=== PATIENT | female | born 1995 | race Caucasian/White ===

== ENCOUNTER 2018-05-14 19:06 | Emergency (ER) | payer OTHER ==
[2018-05-14 19:10] VITALS: TEMP 97.7; BMI 22.4
--- NOTE | 2018-05-14 20:15 | PDOC ---
*Physical Exam - Vital Signs Last Vital Signs Temp Pulse Resp BP Pulse Ox 97.7 F 111 H 20 134/80 99 05/14/18 19:08 05/14/18 19:08 05/14/18 19:08 05/14/18 19:08 05/14/18 19:08 Medical Decision Making - Medical Decision Making 05/16/18 08:53 The patient was seen and evaluated in conjunction with YOUSIF Murray under my direct supervision, ancillary studies were reviewed. I agree with the plan as outlined by YOUSIF Murray *DC/Admit/Observation/Transfer Diagnosis at time of Disposition: Rash and nonspecific skin eruption - Discharge Dispostion Disposition: HOME Condition at time of disposition: Stable - Referrals Referrals: Yarely Ortiz MD [Staff Physician] - ON STAFF,NOT [Primary Care Provider] - - Patient Instructions Printed Discharge Instructions: DI for Rash Additional Instructions: Your Discharge Instructions: You must call primary care physician within 24 hours to arrange follow-up. Return to the Emergency Department with any new, persistent or worsening symptoms, for fever, chills, SOB, dizziness or any other concerning changes that may occur. Follow-up with the dermatology, call for an appointment in 1-2 days for further testing and evaluation. The rash gets itchy take Benadryl as needed. - Post Discharge Activity Forms/Work/School Notes: Back to Work
[2018-05-14 20:30] VITALS: BP 123/63; PULSE 92
--- NOTE | 2018-05-14 20:40 | PDOC ---
History of Present Illness - General Chief Complaint: Blurry Vision Stated Complaint: RASH Time Seen by Provider: 05/14/18 20:01 History Source: Patient Exam Limitations: No Limitations - History of Present Illness Initial Comments: 05/14/18 20:33 Patient is a 22-year-old female with history of ovarian cystectomy, c/o rash to her joints, hands, elbow, knees and feet which started about 3 weeks ago while she was in [place]. States the rash looked like blisters was mildly itchy than and had 1 day of subjective fever for which she took Tylenol and felt that the fever was resolved the next day. The rash is going away until 4 days ago when it started coming back. States that 4 days ago may have had a fever, because she felt hot, and took Tylenol for her symptoms. The next day she was feeling better. Denies any allergens or any exposure to allergens, no history of eczema , no exposures to anyone with similar rash. However states that 4 days ago also intermittently had shortness of breath, palpitations and blurred vision. Patient is not on OCPs. FAMhx neg for DVT/PE, ND,/CVA PMD: Dr. Page Do PMHX: neg PSOCHX: occ etoh, occ MJ ALL: NKDA GENERAL/CONSTITUTIONAL: [No fever or chills. No weakness. No weight change.] HEAD, EYES, EARS, NOSE AND THROAT: [No change in vision. No ear pain or discharge. No sore throat.] CARDIOVASCULAR: [No chest pain or shortness of breath.] RESPIRATORY: [No cough, wheezing, or hemoptysis.] GASTROINTESTINAL: [No nausea, vomiting, diarrhea or constipation. No rectal bleeding.] GENITOURINARY: [No dysuria, frequency, or change in urination.] MUSCULOSKELETAL: [No joint or muscle swelling or pain. No neck or back pain.] SKIN AND BREASTS: (+) rash or easy bruising.] NEUROLOGIC: [No headache, vertigo, loss of consciousness, or loss of sensation.] PSYCHIATRIC: [No depression or anxiety.] ENDOCRINE: [No increased thirst. No abnormal weight change.] HEMATOLOGIC/LYMPHATIC: [No anemia, easy bleeding, or history of blood clots.] ALLERGIC/IMMUNOLOGIC: [No hives or skin allergy. No latex allergy.] GENERAL: [The patient is awake, alert, and fully oriented, in no acute distress. ] HEAD: [Normal with no signs of trauma.] EYES: [Pupils equal, round and reactive to light, extraocular movements intact, sclera anicteric, conjunctiva clear.] ENT: [Ears normal, nares patent, oropharynx clear without exudates. Moist mucous membranes.] NECK: [Normal range of motion, supple without lymphadenopathy, JVD, or masses.] LUNGS: [Breath sounds equal, clear to auscultation bilaterally. No wheezes, and no crackles.] HEART: [Regular rate and rhythm, normal S1 and S2 without murmur, rub.] ABDOMEN: [Soft, nontender, normoactive bowel sounds. No guarding, no rebound. No masses.] EXTREMITIES: [Normal range of motion, no edema. No clubbing or cyanosis. No cords, erythema, or tenderness.] NEUROLOGICAL: [Cranial nerves II through XII grossly intact. Normal speech, normal gait.] PSYCH: [Normal mood, normal affect.] SKIN: [Warm, Dry, normal turgor, (+) rashes or lesions noted healing, (+) ecchymosis, non tender] Past History - Past Medical History Allergies/Adverse Reactions: Allergies Allergy/AdvReac Type Severity Reaction Status Date / Time No Known Allergies Allergy Verified 05/14/18 19:59 Home Medications: Ambulatory Orders NK [No Known Home Medication] 05/14/18 COPD: No - Suicide/Smoking/Psychosocial Hx Smoking History: Never smoked Information on smoking cessation initiated: No Substance Use Type: Marijuana *Physical Exam - Vital Signs Last Vital Signs Temp Pulse Resp BP Pulse Ox 97.7 F 92 H 20 123/63 100 05/14/18 19:08 05/14/18 20:27 05/14/18 20:27 05/14/18 20:27 05/14/18 20:27 Medical Decision Making - Medical Decision Making 05/14/18 20:35 Patient is a 22-year-old female with past history of ovarian cystectomy here with complaints of a rash which started about 2 weeks ago over her joint. Rashes nonspecific but has been resolving over time. We will instruct patient to follow up with dermatology for more testing In reference to shortness of breath and palpitations patient currently has no symptoms. PERC neg vs stable, will suggest to follow up with the primary care for further care. I discussed the physical exam findings, ancillary test results and final diagnoses with the patient. I answered all of the patient's questions. The patient was satisfied with the care received and felt comfortable with the discharge plan and treatment plan. The Patient agrees to follow up with the primary care physician within 24-72 hours. 05/14/18 20:42 Selected Entries 05/14/18 20:27 Pulse Rate [ 92 H Right Radial] Respiratory 20 Rate Blood Pressure 123/63 [Right Arm] O2 Sat by Pulse 100 Oximetry (%) *DC/Admit/Observation/Transfer Diagnosis at time of Disposition: Rash and nonspecific skin eruption - Discharge Dispostion Disposition: HOME Condition at time of disposition: Stable - Referrals Referrals: ON STAFF,NOT [Primary Care Provider] - Yarely Ortiz MD [Staff Physician] - - Patient Instructions Printed Discharge Instructions: DI for Rash Additional Instructions: Your Discharge Instructions: You must call primary care physician within 24 hours to arrange follow-up. Return to the Emergency Department with any new, persistent or worsening symptoms, for fever, chills, SOB, dizziness or any other concerning changes that may occur. Follow-up with the dermatology, call for an appointment in 1-2 days for further testing and evaluation. The rash gets itchy take Benadryl as needed. - Post Discharge Activity Forms/Work/School Notes: Back to Work
== END 2018-05-14 21:00 | disposition home or self-care (01) ==
LOC: JER 19:06
DX: R21 Rash and other nonspecific skin eruption (principal)
CPT/HCPCS: 99282-25